=== PATIENT | female | born 1975 | race Caucasian/White ===

== ENCOUNTER → 2024-05-09 08:42 | Outpatient (REF) | payer OTHER, SELFPAY | LOC: WDC 08:42 | PROVIDERS: ATTENDING PHYSICIAN Surgery; FAMILY PHYSICIAN Internal Medicine | DX: Z12.31 Encounter for screening mammogram for malignant neoplasm of breast (principal) | CPT/HCPCS: 77063; 77067 ==

== ENCOUNTER → 2024-09-14 08:01 | Outpatient (REF) | payer OTHER, SELFPAY | LOC: WDC 08:01 | PROVIDERS: ATTENDING PHYSICIAN Nurse Practitioner Adult Health; FAMILY PHYSICIAN Internal Medicine | DX: R92.2 Inconclusive mammogram (principal) | CPT/HCPCS: 76641 ==

== ENCOUNTER → 2025-05-10 12:39 | Outpatient (REF) | payer OTHER, SELFPAY | LOC: WDC 12:39 | PROVIDERS: ATTENDING PHYSICIAN Internal Medicine | DX: Z12.31 Encounter for screening mammogram for malignant neoplasm of breast (principal) | CPT/HCPCS: 77063; 77067 ==